=== PATIENT | female | born 1995 | race Caucasian/White ===

== ENCOUNTER → 2024-03-01 12:47 | Outpatient (REF) | payer BC, SELFPAY ==
[2024-03-01 14:42] LABS: Iron 103 ug/dl (37-170)
[2024-03-01 14:50] LABS: Vitamin D, 25-OH*** 41.2 ng/mL (30-80)
[2024-03-01 14:51] LABS: Percent Saturation 30 % (20-50); Total Iron Binding Capacity 338 ug/dl (265-497)
[2024-03-01 15:03] LABS: TSH Reflex To Free T4 1.09 uIU/ml (0.47-4.68)
[2024-03-01 15:39] LABS: Folate 3.4 ng/ml (2.76-20); Vitamin B12 316 pg/ml (239-931)
[2024-03-02 05:55] LABS: IgA 60 mg/dl (70-400)
[2024-03-03 19:16] LABS: Endomysial IgA Antibody Titer <1:10 (<1:10)
== END ==
LOC: REG 12:47
PROVIDERS: ATTENDING PHYSICIAN Internal Medicine Gastroenterology
DX: K90.0 Celiac disease (principal)
CPT/HCPCS: 36415; 82306; 82380; 82525; 82607; 82746; 82784; 83516; 83540; 83550; 84443; 84446; 84590; 84630; 86231